=== PATIENT | female | born 1985 | race Hispanic/Latino ===

== ENCOUNTER 2017-12-22 14:20 | Outpatient (CLI) | payer MEDICAID ==
--- NOTE | 2017-12-22 17:00 | ULT ---
LEFT BREAST ULTRASOUND: Date: 12/22/17 COMPARISON: None. HISTORY: Palpable mass at the 2 o'clock position of the left breast. COMPARISON: 12/22/17 mammogram. TECHNIQUE: Multiplanar Davey scale and color Doppler images were obtained in a targeted ultrasound of the left br east. FINDINGS: At the 2 o'clock to 4 o'clock position of the left breast, normal appearing breast parenchyma is seen . No suspicious mass is seen. No suspicious shadowing is seen. IMPRESSION: BIRADS Category 1 - Negative. Annual screening mammography is recommended. POS: [facility]
== END 2017-12-22 14:21 | disposition home or self-care (01) ==
LOC: BICMAMMO 14:20
PROVIDERS: ATTEND Family Medicine
DX: N63.20 Unspecified lump in the left breast, unspecified quadrant (principal)
CPT/HCPCS: 77066; G0279